=== PATIENT | female | born 1995 ===

== ENCOUNTER 2020-02-12 07:33 | Outpatient (CLI) | payer OTHER ==
--- NOTE | 2020-02-12 10:02 | MRI ---
LEFT KNEE MRI WITHOUT IV CONTRAST: HISTORY: Acute left knee pain, prior PCL reconstruction in 2014 with concern for PCL graft and ACL integrity. FINDINGS: There is evidence for an intact replaced PCL graft. The ACL appears intact. There are postop metal susceptibility artifact changes noted which partially obscure some portions of the knee joint. Irreg ular posterior root tear of the medial meniscus. No evidence for acute abnormal marrow signal. Sweta ateral complexes are intact. No significant cartilage loss. There is some slight heterogeneous sign al involving the patellar cartilage, nonspecific, but this could suggest some very mild chondromalaci a patella changes. IMPRESSION: Irregular posterior root tear medial meniscus. Heterogeneous patellar cartilage signal and slight ca rtilage marginal irregularity, evidence for mild chondromalacia patella. Intact replaced posterior c ruciate ligament graft. Intact anterior cruciate ligament. POS: [facility]
== END 2020-02-12 07:34 | disposition home or self-care (01) ==
LOC: BICMRI 07:33
PROVIDERS: ATTEND Orthopaedic Surgery
DX: M25.562 Pain in left knee (principal); M22.42 Chondromalacia patellae, left knee; R93.7 Abnormal findings on diagnostic imaging of other parts of musculoskeletal system; S83.242A Other tear of medial meniscus, current injury, left knee, initial encounter